=== PATIENT | female | born 1975 ===

== ENCOUNTER 2017-01-22 08:59 | Outpatient (CLI) | payer OTHER ==
[2017-01-22] MEDS ORDERED: PROVENTIL IH NR (09:15)
[2017-01-22] MEDS ORDERED: PROVENTIL IH ONE (09:16)
== END 2017-01-22 09:00 | disposition home or self-care (01) ==
LOC: PF 08:59
PROVIDERS: ATTEND Internal Medicine
DX: J45.909 Unspecified asthma, uncomplicated (principal); D86.0 Sarcoidosis of lung; D86.89 Sarcoidosis of other sites; G37.3 Acute transverse myelitis in demyelinating disease of central nervous system; F32.9 Major depressive disorder, single episode, unspecified; I10 Essential (primary) hypertension; G40.909 Epilepsy, unspecified, not intractable, without status epilepticus; E04.2 Nontoxic multinodular goiter; T78.40XA Allergy, unspecified, initial encounter; M70.60 Trochanteric bursitis, unspecified hip; Y93.89 Activity, other specified; X58.XXXA Exposure to other specified factors, initial encounter
CPT/HCPCS: 94060; 94640; 94729

== ENCOUNTER 2018-01-25 09:02 | Outpatient (CLI) | payer OTHER ==
--- NOTE | 2018-01-25 09:59 | Mammography Report ---
BILATERAL MAMMOGRAM: FINDINGS: The breast tissue is extremely dense (>75% glandular). This may lower the sensitivity of mammography. No mass, distortion, suspicious calcification, or skin change is seen. CAD was utilized. IMPRESSION: Negative mammogram. There is no mammographic evidence of malignancy. Due to the density of this patient's breasts consider periodic screening global ultrasound. RECOMMENDATION: Follow-up per ACS guidelines. BI-RADS CATEGORY: 1 = Negative ACR BI-RADS MAMMOGRAPHIC CODES: 0 = Needs additional imaging evaluation; 1 = Negative; 2 = Benign; 3 = Probably benign; 4 = Suspicious; 5 = Malignant; 6 = Known biopsy-proven malignancy COMMENT: 1. Dense breast tissue, i.e., adenosis, fibrocystic changes, etc., may obscure an underlying neoplasm. 2. Approximately 10% of cancers are not detected with mammography. 3. A negative mammography report should not delay biopsy if a clinically suspicious mass is present. COMMENT: Patient follow-up letters are generated in [employer].
--- NOTE | 2018-01-25 10:31 | Ultrasound Report ---
Thyroid ultrasound: Goiter. The right lobe measures 14 x 19 x 46 mm. In the superior lobe there is a circumscribed 6 mm nodule which is mostly cystic. No calcifications. The lobe is otherwise homogeneous and unremarkable. The left lobe of measures 17 x 20 x 45 mm and is also generally homogeneous except for 2 circumscribed nodules. The smaller nodule is circumscribed and partially cystic measuring 7.1 mm. The dominant nodule is circumscribed mostly cystic measuring 1.1 cm in size. No calcifications in either nodule. The isthmus has a thickness of 3 mm. Impressions: Normal glandular size with bilateral benign appearing nodules.
== END 2018-01-25 09:03 | disposition home or self-care (01) ==
LOC: SPVWC 09:02
PROVIDERS: ATTEND Family Medicine
DX: Z12.31 Encounter for screening mammogram for malignant neoplasm of breast (principal); E04.2 Nontoxic multinodular goiter
CPT/HCPCS: 76536; 77067

== ENCOUNTER 2020-06-09 09:39 | Outpatient (CLI) | payer MEDICARE ==
--- NOTE | 2020-06-09 12:23 | Mammography Report ---
DIGITAL SCREENING MAMMOGRAM WITH CAD, 06/09/2020 INDICATION: Routine screening mammography. TECHNIQUE: Digital bilateral 2D mammography was obtained in the craniocaudal and mediolateral obliq ue projections. This examination was interpreted with the benefit of Computer-Aided Detection analysi s. COMPARISON: 01/25/2018. FINDINGS: Breast Density: The breasts are extremely dense, which lowers the sensitivity of mammography. There is no evidence of dominant mass, suspicious calcifications or architectural distortion in eithe r breast. IMPRESSION: Follow up recommendation: Routine yearly BI-RADS Category 1: Negative. A "normal" or negative report should not discourage follow up or biopsy of a clinically significant f inding. A written summary of these findings will be mailed to the patient. The patient will be entered into a mammography reporting system which will generate a reminder letter for the patient's next appointmen t at the appropriate interval. The [employer] recommends yearly mammograms starting at age 40 and continuing as l dana as a woman is in good health. Breast MRI is recommended for women with an approximate 20-25% or greater lifetime risk of breast cancer, including women with a strong family history of breast or ova davey cancer or who have been treated for Hodgkin's disease. Signer Name: Christopher Bajwa MD Signed: 06/09/2020 12:19 PM Workstation Name: [id number]
== END 2020-06-09 09:40 | disposition home or self-care (01) ==
LOC: SPVWC 09:39
PROVIDERS: ATTEND Family Medicine
DX: Z12.31 Encounter for screening mammogram for malignant neoplasm of breast (principal)
CPT/HCPCS: 77067